=== PATIENT | female | born 1990 | race Caucasian/White ===

== ENCOUNTER 2021-02-09 14:24 | Emergency (ER) | payer OTHER ==
[2021-02-09] MEDS ORDERED: Lidocaine 1% with EPINEPHrine 1:100,000 50 ML MDV INFILT STA (15:38)
--- NOTE | 2021-02-09 16:55 | EDM.PDOC ---
ED HPI GENERAL MEDICAL PROBLEM - General Chief Complaint: Laceration Stated Complaint: LACERATION ON LT LEG Time Seen by Provider: 02/09/21 15:30 - History of Present Illness INITIAL COMMENTS - FREE TEXT/NARRATIVE: This is a 30-year-old female presents with a left leg laceration. Reports that she was walking on a dock across the [facility] area of [address] [place] when the doctor broken her leg punch through. She sustained a laceration to the left leg. Laceration was submerged for some time in dirty freshwater when she was crawling out. Initially quite a bit of bleeding which subsided. She is able to ambulate on extremity without difficulty. She does not know her last tetanus. Left Lower Leg Pain Score (Numeric/FACES): 2 - Related Data Allergies Allergy/AdvReac Type Severity Reaction Status Date / Time No Known Allergies Allergy Verified 02/09/21 15:02 Home Meds: Home Meds cephALEXin [Keflex] 500 mg PO QID #40 cap 02/09/21 [Rx] levoFLOXacin [Levaquin] 750 mg PO DAILY #10 tab 02/09/21 [Rx] Past Medical History - Past Health History Medical/Surgical History: Denies Medical/Surgical History - Infectious Disease History Infectious Disease History: Reports: Chicken Pox Social & Family History - Tobacco Use Tobacco Use Status *Q: Never Tobacco User - Caffeine Use Caffeine Use: Reports: Soda - Recreational Drug Use Recreational Drug Use: No ED ROS GENERAL - Review of Systems Review Of Systems: See Below Constitutional: Reports: No Symptoms HEENT: Reports: No Symptoms Respiratory: Reports: No Symptoms Cardiovascular: Reports: No Symptoms Endocrine: Reports: No Symptoms GI/Abdominal: Reports: No Symptoms : Reports: No Symptoms Musculoskeletal: Reports: No Symptoms Skin: Reports: Wound Neurological: Reports: No Symptoms Psychiatric: Reports: No Symptoms Hematologic/Lymphatic: Reports: No Symptoms Immunologic: Reports: No Symptoms ED EXAM, SKIN/RASH Exam: See Below Exam Limited By: No Limitations General Appearance: Alert, No Apparent Distress Ears: Normal External Exam Nose: Normal Inspection Throat/Mouth: Normal Inspection Head: Atraumatic, Normocephalic Neck: Normal Inspection Respiratory/Chest: No Respiratory Distress, Lungs Clear Cardiovascular: Regular Rate, Rhythm GI/Abdominal: Soft, Non-Tender Back Exam: Normal Inspection Extremities: Other (Wound present, see below) Neurological: Alert, Oriented Psychiatric: Normal Affect, Normal Mood Skin: Other (There is an approximately 8 cm laceration on the mid lateral left hawley. It involves the underlying subcutaneous fat but there is no tendon or muscle involvement. She is completely neurovascularly intact distal to the laceration.) ED SKIN PROCEDURES - Laceration/Wound Repair Left Lower Leg Appearance: Subcutaneous Distal NVT: Neuro & Vascular Intact Anesthetic Type: Local Local Anesthesia - Lidocaine (Xylocaine): 1% with EPI Local Anesthetic Volume: 5cc Skin Prep: Saline Saline Irrigation (cc's): 2,000 Exploration/Debridement/Repair: Wound Explored, Foreign Material Removed Closed with: Sutures Lac/Wound length In cm: 8 Suture Size: 3-0 # of Sutures: 6 Suture Type: Nylon, Interrupted, Simple Sterile Dressing Applied: Nurse Tetanus Status Addressed: Yes Complications: No Course - Vital Signs Last Recorded V/S: Last Vital Signs Temp 36.7 C 02/09/21 15:02 Pulse 78 02/09/21 15:41 Resp 16 02/09/21 15:02 BP 133/90 02/09/21 15:41 Pulse Ox 97 02/09/21 15:41 - Orders/Labs/Meds Meds: Medications Discontinued Medications Generic Name Dose Route Start Last Admin Trade Name Freq PRN Reason Stop Dose Admin Diphtheria/Tetanus/Acell Pertussis 0.5 ml 02/09/21 16:56 02/09/21 17:31 Diphtheria,Pertussis(Acell),Tetanus Vaccine 0.5 Ml Syringe IM 02/09/21 16:57 0.5 ml .ONCE ONE Administration Lidocaine/Epinephrine 10 ml 02/09/21 15:38 02/09/21 16:17 Lidocaine 1% With Epinephrine 1:100,000 50 Ml Mdv INFILT 02/09/21 15:39 10 ml NOW STA Administration - Re-Assessments/Exams Free Text/Narrative Re-Assessment/Exam: 02/09/21 18:33 This is a 30-year-old female presents with a left leg laceration. This was sustained after punching her leg through a dock into the fresh water. On examination she has a large laceration of the leg involving the subcutaneous fat as outlined. We did extensive irrigation with sterile saline as there was significant plant matter in the wound. Ultimately were able to visualize the entire wound, and no visible foreign body remained present. There is no underlying involvement of tendon or muscle. Given the infection risk with all of the microparticles in the wound, I elected to do a loose closure. This was performed as outlined. With the significant exposure to fresh water she has been placed on Keflex as well as Levaquin per up-to-date guidelines.. We carefully discussed indications of infection, she realizes this is a higher risk laceration for this, and she will be on the look out. She is going to follow-up with her primary doctor when she returns home early next week for wound check. We discussed wound cares and she knows to return for any signs of infection. Tetanus was administered. Departure - Departure Time of Disposition: 17:03 Disposition: Home, Self-Care 01 Clinical Impression: Leg laceration Qualifiers: Encounter type: initial encounter Laterality: left Qualified Code(s): S81.812A - Laceration without foreign body, left lower leg, initial encounter - Discharge Information *PRESCRIPTION DRUG MONITORING PROGRAM REVIEWED*: No *COPY OF PRESCRIPTION DRUG MONITORING REPORT IN PATIENT FRANK: No Prescriptions: cephALEXin [Keflex] 500 mg PO QID #40 cap levoFLOXacin [Levaquin] 750 mg PO DAILY #10 tab Instructions: Laceration Care, Adult, VIS, DTaP (Diphtheria, Tetanus, Pertussis) Vaccine - CDC (11/11/2019) Referrals: PCP,None [Primary Care Provider] - Forms: ED Department Discharge Additional Instructions: As discussed, the laceration on your leg will require close attention for signs of infection. These include redness, purulent discharge, or significant increase in pain. Please take both of the prescribed antibiotics. Use Tylenol and ibuprofen for pain. Do not get the wound wet for the first 48 hours. After this time do not scrub it is okay for it to get a little moist in the shower. Change the dressing whenever they become soiled. Follow-up early next week for a wound check. The sutures will not likely come out for 7 to 10 days. If you develop signs of infection it is important that you promptly see a physician. Thank you for trusting us to care for you today. Sepsis Event Note (ED) - Evaluation Sepsis Screening Result: No Definite Risk - Focused Exam Vital Signs: Vital Signs Temp Pulse Resp BP Pulse Ox 02/09/21 15:41 78 133/90 97 02/09/21 15:02 36.7 C 85 16 156/96 H 97 02/09/21 14:41 36.7 C 85 156/96 H 97
[2021-02-09] MEDS ORDERED: Diphtheria,Pertussis(Acell),Tetanus Vaccine 0.5 ML Syringe IM ONE (16:56)
== END 2021-02-09 17:49 | disposition home or self-care (01) ==
LOC: JP.ED 14:24
DX: S81.812A Laceration without foreign body, left lower leg, initial encounter (principal); Z23 Encounter for immunization; W26.8XXA Contact with other sharp object(s), not elsewhere classified, initial encounter
CPT/HCPCS: 12004; 12034; 90471; 90715; 99282-25; 99283